=== PATIENT | male | born 1955 | race African-American/Black ===

== ENCOUNTER 2018-02-27 20:04 | Emergency (ER) | payer SELFPAY ==
[~2018-02-27] VITALS: Ht 180.3 cm; Wt 79.4 kg
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
--- NOTE | 2018-02-27 20:32 | NUR ---
DAYO ENCARNACION MD AT BED SIDE FOR EVAL
[2018-02-27] MEDS ORDERED: TDAP [DIPH/PERTUSSIS/TET] 0.5 ML VIAL IM ONE ×2 (21:00→22:03)
[2018-02-27] MEDS ORDERED: LIDOCAINE 1%-EPI 1:200,000 SDV 10 ML VIAL IJ ONE (23:24)
[2018-02-27] MEDS ORDERED: LIDOCAINE 1% INJ 50 ML MDV IJ ONE (23:24)
[2018-02-28] MEDS ORDERED: HYDROCODONE/APAP 10/325MG 1 EA TABLET PO ONE
[2018-02-28] MEDS ORDERED: HYDROCODONE/APAP 10/325MG 1 EA TABLET ONE (00:09)
[2018-02-28] MEDS ORDERED: IBUPROFEN 600 MG TABLET PO ONE ×2 (00:09)
--- NOTE | 2018-02-28 00:23 | NUR ---
MEDICATED PT ORDERED
[2018-02-28 01:28] VITALS: BP 133/75
--- NOTE | 2018-02-28 01:28 | NUR ---
Patient discharged to home in stable condition. Written and verbal after care instructions given. Patient verbalizes understanding of instruction. PT ambulatory with a steady gait VITAL SIGNS WITHIN NORMAL LIMITS.
== END 2018-02-28 01:33 | disposition home or self-care (01) ==
LOC: ER 20:09
DX: S01.112A Laceration without foreign body of left eyelid and periocular area, initial encounter (principal); S61.411A Laceration without foreign body of right hand, initial encounter; S20.219A Contusion of unspecified front wall of thorax, initial encounter; Z98.890 Other specified postprocedural states; Y04.0XXA Assault by unarmed brawl or fight, initial encounter; Y93.89 Activity, other specified; Y92.038 Other place in apartment as the place of occurrence of the external cause; Y99.8 Other external cause status
CPT/HCPCS: 12011; 70450; 70486; 71045; 90471; 90715; 99284; A4606; A6402 ×3; J3490; Z7610